=== PATIENT | female | born 1940 | race Caucasian/White ===

== ENCOUNTER 2016-09-11 17:50 | Emergency (ER) | payer OTHER ==
--- NOTE | ~2016-09-11 | EKG ---
PATIENT: MAYA QUIÑONES UNIT #: [id number] Ventricular Rate: 114 BPM Atrial Rate: 394 BPM QRS Duration: 118 ms Q-T Interval: 364 ms QTC Calculation(Bezet): 501 ms Calculated R [place]: -57 degrees Calculated T [place]: 118 degrees Diagnosis Line: Atrial fibrillation with rapid ventricular Diagnosis Line: response with premature ventricular or aberrantly Diagnosis Line: conducted complexes Diagnosis Line: Left bundle branch block Baseline wander Diagnosis Line: Abnormal ECG Diagnosis Line: When compared with ECG of 24-DEC-2010 08:21, Diagnosis Line: Atrial fibrillation has replaced Sinus rhythm Diagnosis Line: Left bundle branch block is no longer Present Diagnosis Line: Anteroseptal infarct is now Present Diagnosis Line: Inferior infarct is now Present Diagnosis Line: Confirmed by MARC SALMERON MD ([id number]) on 09/15/2016 Diagnosis Line: 3:42:10 PM INTERPRETING MD: JARON LONGORIA
--- NOTE | ~2016-09-11 | CR72 ---
[facility] A Service [facility] RADIOLOGY TEXT RESULTS PATIENT: MAYA QUIÑONES LOCATION: SED : 41 UNIT #: [id number] AGE: [address]: Robert Christensen MD SEX: F ORDER DR: [id number] [place] [id number] MR#: [id number] Acc #: [id number] NAME: MAYA QUIÑONES. : 1940 SEX: F STUDY DATE/TIME: 09/11/2016 16:45 UNIT: SED ROOM: STUDY DESCRIPTION: CR Chest Single View Portable Attending Physician: Robert Christensen M.D. Ordering Physician: Robert Christensen M.D. Primary Care Physician: Parveen Maldonado M.D. MEDICAL IMAGING REPORT This report is preliminary unless electronic signature is present. EXAM Portable AP view of the chest 09/11/2016 COMPARISON None INDICATIONS 76-year-old female with weakness since yesterday. Patient has a history of Parkinson disease with tremors. History of hypertension. FINDINGS Exam is limited by patient motion, perhaps secondary to the patient's known Parkinson disease. There is no evidence of pneumothorax, pleural effusion or acute airspace disease. Cardiomediastinal silhouette is within normal limits given motion. IMPRESSION Motion limited exam, possibly a product of the patient's Parkinson disease. No acute abnormality of the chest is seen. Dictated by... Jcarlos Whipple M.D. THIS IS AN ELECTRONICALLY VERIFIED REPORT Jcarlos Whipple M.D. at 09/16/2016 5:37 PM CARMELLA/sofia TD: 09/11/2016 18:23 JOB #: [id number] MEDICAL IMAGING REPORT [facility] A Service [facility] RADIOLOGY TEXT RESULTS PATIENT: MAYA QUIÑONES LOCATION: SED : 41 UNIT #: [id number] AGE: [address]: Robert Christensen MD SEX: F ORDER DR: Page 1 of 1
[2016-09-11 17:25] LABS: BASOPHIL# 0.1 X10e3 (0-0.3); BASOPHIL% 0.7 % (0-2.5); EOSINOPHIL# 0.1 X10e3 (0-0.7); EOSINOPHIL% 0.8 % (0.0-7.0); HEMATOCRIT 44.1 % (35.0-45.0); HEMOGLOBIN 15.2 gm/dL (12.0-16.0); LYMPHOCYTE% 28.9 % (17.0-45.0); MEAN CELL VOLUME 85.9 FL (83-96); MEAN CORPUSCULAR HEMOGLOBIN 29.6 PG (28-34); MEAN CORPUSCULAR HGB CONC 34.5 g/dL (30-36); MEAN PLATELET VOLUME 7.7 FL (6.5-11.5); MONOCYTE# 0.6 X10e3 (0-1.0); MONOCYTE% 8.5 % (3.0-12.0); NEUTROPHIL# 4.3 X10e3 (1.5-7.1); NEUTROPHIL% 61.1 % (40-75); PLATELET COUNT 200 X10e3 (140-420); RED BLOOD COUNT 5.13 X10e (3.90-5.30); RED CELL DISTRIBUTION WIDTH 14.5 % (11.0-15.5); WHITE BLOOD COUNT 7.1 X10e3 (4.0-10.5)
[2016-09-11 17:28] LABS: DIFF IND NO
[2016-09-11 17:42] LABS: INR 1.1
[~2016-09-11 17:50] MED LIST: ATENOLOL; CELEBREX; CITRACAL PLUS1 EACH; CRESTOR; EFFEXOR; EVISTA60 M1; FLOMAX0.4 M1 PO; GLIPIZIDE2.5 MG/BOT; GLUCOPHAGE500 MG; LEVAQUIN750 MG PO; LEVOTHYROXINE112 MCG; LISINOPRIL-HCTZ1 T15; LORTAB 5/500 TA1 TA1 PO; VITAMIN B650 M1; VITAMIN D400 UNI2; VITAMIN E; ZOFRAN PO
[2016-09-11 17:51] LABS: ALBUMIN SERUM 3.7 g/dL (3.5-5.0); ALKALINE PHOSPHATASE 62 U/L (32-92); AST (SGOT) 34 U/L (10-42); BILIRUBIN, DIRECT 0.2 mg/dL (0.0-0.2); BILIRUBIN,INDIRECT 0.8 mg/dL (0.0-0.9); BLOOD UREA NITROGEN 16 mg/dL (9-23); BUN/CREATININE RATIO 17.77; CALCIUM SERUM 8.5 mg/dL (8.4-10.2); CARBON DIOXIDE 26 mmol/L (22-31); CHLORIDE 95 mmol/L (100-111); CREATININE SERUM 0.9 mg/dL (0.6-1.4); GLOM FILT RATE Estimated 62.6 mL/min (>60); GLUCOSE FASTING 139 mg/dL (70-110); PROTEIN TOTAL SERUM 6.7 g/dL (6.0-8.3); SODIUM 128 mmol/L (135-145)
[2016-09-11 17:52] LABS: ALT (SGPT) <5 U/L (10-40); POTASSIUM 2.6 mmol/L (3.5-5.1)
[2016-09-11 18:15] LABS: POC - CKMB 2.1 ng/mL (0.0-7.9); POC - TROPONIN <0.05 ng/mL (<=0.05)
[2016-09-11 18:18] LABS: URINE SOURCE CLEAN CATCH
[2016-09-11 18:23] LABS: URINE APPEARANCE CLEAR; URINE BILIRUBIN NEG (NEG); URINE BLOOD NEG (NEG); URINE COLOR YELLOW; URINE GLUCOSE NEG (NORM); URINE KETONE TRACE (NEG); URINE LEUKOCYTE ESTERASE NEG (NEG); URINE NITRATE NEG (NEG); URINE PH 6.5 (5-8); URINE PROTEIN TRACE (NEG); URINE SPECIFIC GRAVITY 1.015 (1.003-1.035); URINE UROBILINOGEN 0.2 MG/DL (NORM)
[2016-09-11 18:28] LABS: MICRO INDICATED? YES
[2016-09-11 18:29] LABS: URINE BACTERIA NEG (NEG); URINE MUCUS PRESENT; URINE SQUAMOUS EPITHELIAL CELL OCCAS /[HPF]; URINE TRANSITIONAL EPI CELLS FEW /[HPF]; URINE WBC 0-2 /[HPF] (0-5)
== END 2016-09-11 19:29 | disposition home or self-care (01) ==
LOC: SED 17:50
PROVIDERS: Emergency Medicine
DX: E87.6 Hypokalemia (principal); I10 Essential (primary) hypertension; Z90.49 Acquired absence of other specified parts of digestive tract; E11.9 Type 2 diabetes mellitus without complications; Z88.2 Allergy status to sulfonamides; Z88.1 Allergy status to other antibiotic agents; Z88.5 Allergy status to narcotic agent; Z79.899 Other long term (current) drug therapy
CPT/HCPCS: 36415; 71010; 80048; 80076; 81003; 82553; 82947; 83605; 84484; 85025; 85610; 85730; 87040; 93005; 96361; 96365; 99284